=== PATIENT | female | born 1980 | race Caucasian/White ===

== ENCOUNTER 2018-01-28 12:24 | Emergency (ER) | payer OTHER ==
[~2018-01-28] VITALS: Ht 170.2 cm; Wt 81.6 kg
--- NOTE | 2018-01-28 12:24 | NUR ---
1219 PT BIBA TO ER BED 02
[2018-01-28] MEDS ORDERED: ONDANSETRON 4 MG/2 ML VIAL IVP ONE (12:30)
[2018-01-28] MEDS ORDERED: NACL 0.9% 1,000 ML IV ONE (12:30)
--- NOTE | 2018-01-28 12:30 | NUR ---
37Y/F BIB EMS FROM A [facility] FOUND ON THE GROUND WITH C/O N/V/D; GIVEN 4MG ZOFRAN EN ROUTE; USES HEROIN PER PT; PT IS AAOX4; VSS; BED DOWN; BEDRAIL UP X 1; ER MD AWARE AND NOTIFIED OF PT STATUS. HX; UNKNOWN RX; UNKNOWN
[2018-01-28 12:31] VITALS: BP 110/64
--- NOTE | 2018-01-28 12:31 | NUR ---
Patient being evaluated by physician at bedside.
[2018-01-28] MEDS ORDERED: ONDANSETRON 4 MG ODT PO ONE (13:05)
[2018-01-28] MEDS ORDERED: KETOROLAC 60 MG/2 ML VIAL IM ONE (14:15)
[2018-01-28 15:13] VITALS: BP 135/77
--- NOTE | 2018-01-28 15:14 | NUR ---
Patient discharged with v/s stable. Written and verbal after care instructions given and explained. Patient alert, oriented and verbalized understanding of instructions. Ambulatory with steady gait. All questions addressed prior to discharge. ID band removed. Patient advised to follow up with PMD. Rx of ZOFRAN, MOTRIN, IMODIUM given. Patient educated on indication of medication including possible reaction and side effects. Opportunity to ask questions provided and answered.
== END 2018-01-28 15:14 | disposition home or self-care (01) ==
LOC: MED 12:24
DX: R10.13 Epigastric pain (principal); R11.2 Nausea with vomiting, unspecified; R19.7 Diarrhea, unspecified; R50.9 Fever, unspecified; F17.200 Nicotine dependence, unspecified, uncomplicated
CPT/HCPCS: 96372; 99283; J1885; J2405; S0119